=== PATIENT | female | born 1980 | race Caucasian/White ===

== ENCOUNTER 2017-09-23 03:05 | Emergency (ER) | payer OTHER ==
[~2017-09-23] VITALS: Ht 175.3 cm; Wt 111.1 kg
[~2017-09-23 03:05] MED LIST: PRED50TA PO
[2017-09-23 03:18] VITALS: BP 131/85
--- NOTE | 2017-09-23 03:45 | PHYS DOC ---
Past History Past Medical History: Anemia, Other Past Surgical History: No Surgical History Alcohol Use: None Drug Use: None Adult General Chief Complaint Chief Complaint: MUSCLE SPASM/[facility] HPI Patient is a 37-year-old female presents with complaints of muscle cramps and spasms similar to multiple previous episodes. Episode started tonight. Before tonight no recent illness, no fevers, chills, rashes. Patient denies any other symptoms other than the cramping and spasms. Took by mouth medications with no relief. Patient has PCP to follow up with and has physical therapy already scheduled for treatment of his symptoms Review of Systems Review of Systems Constitutional: Denies fever or chills [] HENT: Denies nasal congestion or sore throat [] Respiratory: Denies cough or shortness of breath [] Cardiovascular: No additional information not addressed in HPI [] GI: Denies abdominal pain, nausea, vomiting, bloody stools or diarrhea [] : Denies dysuria or hematuria [] Musculoskeletal: As per history of present illness Integument: Denies rash or skin lesions [] Neurologic: Denies headache, focal weakness or sensory changes [] All other systems were reviewed and found to be within normal limits, except as documented in this note. Allergies Allergies Allergies Coded Allergies Type Severity Reaction Last Updated Verified No Known Drug Allergies 08/23/16 No Physical Exam Physical Exam Constitutional: Well developed, well nourished, no acute distress, non-toxic appearance. [] HENT: Normocephalic, atraumatic, bilateral external ears normal, oropharynx moist, no oral exudates, nose normal. [] Eyes: , EOMI, conjunctiva normal, no discharge. [] Neck: Normal range of motion, trachea midline, no stridor. [] Cardiovascular: Normal perfusion Lungs & Thorax: Bilateral breath sounds clear to auscultation, no tachypnea Abdomen: Bowel sounds normal, soft, no tenderness, no distention Skin: Warm, dry, no erythema, no rash. [] Back: No tenderness, no CVA tenderness. [] Extremities: No tenderness, , ROM intact, no edema. [] Neurologic: Alert and oriented X 3, normal motor function, normal speech, no focal deficits noted. [] Psychologic: Affect normal, judgement normal, mood normal. [] Current Patient Data Vital Signs Vital Signs Date Time Temp Pulse Resp B/P (MAP) Pulse Ox O2 Delivery O2 Flow Rate FiO2 09/23/17 03:18 97.3 82 20 99 Room Air EKG EKG [] Radiology/Procedures Radiology/Procedures [] Course & Med Decision Making Course & Med Decision Making Pertinent Labs and Imaging studies reviewed. (See chart for details) Patient looks well and is nontoxic. Per patient history she's had multiple episodes like this before. That this is not an unusual pattern. She already has follow-up for this condition. Patient looks well and is nontoxic. No significant findings on exam. At the time of this ED evaluation the patient appears healthy and is stable for outpatient follow-up. I do not believe at the time of this evaluation the patient is in need of imaging or lab work or inpatient evaluation. I explained to the patient we'll give her a couple of IM injections, they may take a little bit to work but she can go home in the meantime. Strict return precautions have been discussed, patient agrees to follow-up as directed. [] Dragon Disclaimer Dragon Disclaimer This electronic medical record was generated, in whole or in part, using a voice recognition dictation system. Departure Departure: Impression: Primary Impression: Muscle cramps Additional Impression: Muscle spasm Condition: STABLE Referrals: NAM PANDA DO, [facility] (PCP) Please follow with your doctor for recheck and reevaluation in one to 2 days Patient Instructions: Muscle Cramps Problem Qualifiers Jeannie VOGT MD Sep 23, 2017 03:45
[2017-09-23] MEDS ORDERED: ORPHENADRINE CITRATE 60 MG/2 ML VIAL. IM ONE (04:00)
[2017-09-23] MEDS ORDERED: KETOROLAC 60 MG/2 ML VIAL. IM ONE (04:00)
== END 2017-09-23 04:15 | disposition home or self-care (01) ==
LOC: ER 03:05
DX: M62.838 Other muscle spasm (principal); R25.2 Cramp and spasm; Z86.2 Personal history of diseases of the blood and blood-forming organs and certain disorders involving the immune mechanism
CPT/HCPCS: 96372; 99284; J1885; J2360; 36415; 85014; 85018

== ENCOUNTER 2017-11-22 16:34 | Emergency (ER) | payer OTHER ==
[~2017-11-22] VITALS: Ht 157.5 cm; Wt 118.8 kg
[2017-11-22 17:28] LABS: HEMOGLOBIN ISTAT 10.2 gm/dL; POTASSIUM ISTAT 3.8 mmol/L (3.5-5.0)
--- NOTE | 2017-11-22 17:36 | PHYS DOC ---
Past History Past Medical History: Anemia, Other Past Surgical History: No Surgical History Alcohol Use: None Drug Use: None Adult General Chief Complaint Chief Complaint: DIZZY/LIGHT HEADED HPI HPI Patient is a 37-year-old female brought to the ED by her . She has had some episodes of dizziness for about one week that got worse today. She describes it as feeling like when you've leaned over for a long time and then you straighten up suddenly and you kind of feel lightheaded and almost fainted, this happens to her when she has not been leaning over. The patient does have a history of anemia which has been attributed to iron deficiency, she does have heavy menstrual periods. Her last period was in mid October and it was very heavy. She has had BTL. She has been advised to take iron replacement but has only done so sporadically. Patient also has a history of MS diagnosed almost 20 years ago and is currently having no treatment for that. She sees her neurologist yearly and has a yearly MRI. Her symptoms from that are that her legs are weak and her hands are numb. This has been unchanged. It has been drinking plenty of fluids. She denies vomiting or diarrhea. She has not felt ill otherwise. PCP at [facility] Review of Systems Review of Systems Constitutional: Denies fever or chills [] HENT: Denies nasal congestion or sore throat [] Respiratory: Denies cough or shortness of breath [] Cardiovascular: Denies chest pain GI: Denies abdominal pain, nausea, vomiting, bloody stools or diarrhea [] : Heavy menstrual bleeding as in history of present illness Allergies Allergies Allergies Coded Allergies Type Severity Reaction Last Updated Verified No Known Drug Allergies 08/23/16 No Physical Exam Physical Exam Constitutional: Well developed, well nourished, no acute distress, non-toxic appearance. Alert, mentating normally, heart rate in the 70s. HENT: Normocephalic, atraumatic, bilateral external ears normal, nose normal. [ ] Eyes: conjunctiva normal, no discharge. [] Neck: Normal range of motion, no stridor. [] Cardiovascular:Heart rate regular rhythm, no murmur [] Lungs & Thorax: Bilateral breath sounds clear to auscultation [] Abdomen: Bowel sounds normal, soft, no tenderness, no masses, no pulsatile masses. [] Skin: Warm, dry, no erythema, no rash. [] Extremities: No tenderness, no cyanosis, no clubbing, ROM intact, no edema. [] Neurologic: Alert and oriented X 3, normal motor function, no focal deficits noted. [] Current Patient Data Vital Signs Vital Signs Date Time Temp Pulse Resp B/P (MAP) Pulse Ox O2 Delivery O2 Flow Rate FiO2 11/22/17 17:06 98.2 74 18 100 Room Air Lab Results Laboratory Tests Test 11/22/17 17:16 POC Hemoglobin 10.2 gm/dL POC Hematocrit 30 % POC Sodium 140 mmol/L (135-145) POC Potassium 3.8 mmol/L (3.5-5.0) POC Chloride 106 mmol/L (98-110) POC Total CO2 25 mmol/L (23-32) Anion Gap 15 mmol/L (6-14) H POC Blood Urea Nitrogen 8 mg/dL (8-26) POC Creatinine 0.7 mg/dL (0.5-1.4) Glucose Level 114 mg/dL (60-99) H POC Ionized Calcium ([place]) 1.16 mmol/L (1.13-1.32) EKG EKG [] Radiology/Procedures Radiology/Procedures [] Course & Med Decision Making Course & Med Decision Making Pertinent Labs and Imaging studies reviewed. (See chart for details) I-STAT labs were done. Electrolytes normal. Hemoglobin 10.2, hematocrit 30. I reassured the patient that her symptoms are very likely from anemia which is not severe at this time, discussed the need to get serious about her iron replacement but also I advised her to talk to her primary care doctor about possible treatment for her heavy menstrual periods. The patient is stable for discharge. [] Dragon Disclaimer Dragon Disclaimer This electronic medical record was generated, in whole or in part, using a voice recognition dictation system. Departure Departure: Impression: Primary Impression: Anemia Additional Impression: Paresthesias Disposition: 01 HOME, SELF-CARE Condition: STABLE Referrals: NAM PANDA DO, [facility] (PCP) Additional Instructions: Today, your hemoglobin was 10.2, hematocrit 30. Normal hemoglobin for a lady is about 11-12, so this is mildly anemic. I do encourage you to take iron supplements to see if treating your anemia will help your symptoms. I also encourage you to talk to your doctor about treating your heavy menstrual periods. Continue to drink plenty of fluids. Problem Qualifiers YANY FLORES MD Nov 22, 2017 17:35
[2017-11-22 17:41] VITALS: BP 144/82
== END 2017-11-22 17:40 | disposition home or self-care (01) ==
LOC: ER 16:34
DX: D50.9 Iron deficiency anemia, unspecified (principal); R20.2 Paresthesia of skin
CPT/HCPCS: 36415; 80047; 85014; 85018; 99282

== ENCOUNTER 2018-06-13 08:16 | Emergency (ER) | payer OTHER ==
[~2018-06-13] VITALS: Ht 175.3 cm; Wt 117.3 kg
[2018-06-13] MEDS ORDERED: IV NORMAL SALINE 1,000ML 1,000 ML IV SCH (08:39)
--- NOTE | 2018-06-13 08:44 | EKG ---
[address] [address] Test Date: 2018-06-13 Test Time: 08:27:26 Pat Name: IQRA RODRÍGUEZ Department: Room: Gender: F Derrick Man: : 1980 Requested By: ERIN MARIO Order Number: [id number] Reading MD: John Hernández Measurements Intervals [place] Rate: 78 P: -2 TN: 140 QRS: 42 QRSD: 88 T: 52 QT: 390 QTc: 448 Interpretive Statements SINUS RHYTHM NORMAL ECG Electronically Signed On 06-18-2018 11:45:18 CDT by John Hernández
[2018-06-13] MEDS ORDERED: LORazepam 2 MG/ML VIAL IV ONE (09:00)
--- NOTE | 2018-06-13 09:01 | RAD ---
Exam: AP portable chest History: Trouble breathing and palpitations. Comparison: August 23, 2016. Findings: The heart and mediastinal structures are within normal limits for size. Lungs are without infiltrate. No pleural effusion or pneumothorax is identified. Impression: 1. No acute cardiopulmonary process. Electronically signed by: Lion Jennings MD (06/13/2018 8:57 AM) [facility]
[2018-06-13 09:14] LABS: BASO # 0.1 x10^3/uL (0.0-0.2); BASO % 1 % (0-3); EOS # 0.3 x10^3/uL (0.0-0.7); EOS % 5 % (0-3); HEMATOCRIT 32.9 % (36.0-47.0); HEMOGLOBIN 10.4 g/dL (12.0-15.5); LYMPH # 1.2 x10^3/uL (1.0-4.8); LYMPH % 21 % (24-48); MEAN CORPUSCULAR HEMOGLOBIN 23 pg (25-35); MEAN CORPUSCULAR HGB CONC 32 g/dL (31-37); MEAN CORPUSCULAR VOLUME 72 fL (79-100); MONO # 0.5 x10^3/uL (0.0-1.1); MONO % 8 % (0-9); NEUT # 3.9 x10^3uL (1.8-7.7); NEUT % 65 % (31-73); PLATELET COUNT 299 x10^3/uL (140-400); RED BLOOD COUNT 4.58 x10^6/uL (3.50-5.40)
[2018-06-13 09:26] LABS: ALBUMIN 3.6 g/dL (3.4-5.0); CALCIUM 8.6 mg/dL (8.5-10.1); CREATININE 0.8 mg/dL (0.6-1.0); GFR 79.4; POTASSIUM 4.3 mmol/L (3.5-5.1); TOTAL BILIRUBIN 0.3 mg/dL (0.2-1.0); TOTAL PROTEIN 7.1 g/dL (6.4-8.2)
[2018-06-13] MEDS ORDERED: ALPR0.25 PO (09:54)
--- NOTE | 2018-06-13 09:54 | PHYS DOC ---
Past History Past Medical History: Anemia, Other Past Surgical History: Alcohol Use: None Drug Use: None Adult General Chief Complaint Chief Complaint: RAPID HEART RATE HPI HPI Patient is a 38 year old female who presents with complaining of shortness of breath and palpitation that started this morning as a constant problem with dizziness and lightheadedness and near syncope. Patient denies chest pain and stated she had episodes of the same problem for the last 6 months without seeking medical attention. Patient had history of MS without taking any medication and denies smoking cigarettes and having other medical problem. Patient has positive family history of coronary artery disease. Review of Systems Review of Systems Constitutional: Denies fever or chills [] Eyes: Denies change in visual acuity, redness, or eye pain [] HENT: Denies nasal congestion or sore throat [] Respiratory: Denies cough or shortness of breath [] Cardiovascular: No additional information not addressed in HPI [] GI: Denies abdominal pain, nausea, vomiting, bloody stools or diarrhea [] : Denies dysuria or hematuria [] Musculoskeletal: Denies back pain or joint pain [] Integument: Denies rash or skin lesions [] Neurologic: Denies headache, focal weakness or sensory changes [] Endocrine: Denies polyuria or polydipsia [] All other systems were reviewed and found to be within normal limits, except as documented in this note. Current Medications Current Medications Current Medications Medications (Trade) Dose Ordered Sig/Geovanna Start Time Stop Time Status Last Admin Dose Admin Lorazepam (Ativan) 0.5 mg 1X ONCE 06/13/18 09:00 06/13/18 09:01 DC 06/13/18 09:14 0.5 MG Sodium Chloride 1,000 ml @ 1,000 mls/hr Q1H 06/13/18 08:39 06/13/18 09:38 DC 06/13/18 09:13 1,000 MLS/HR Allergies Allergies Allergies Coded Allergies Type Severity Reaction Last Updated Verified No Known Drug Allergies 08/23/16 No Physical Exam Physical Exam Constitutional: Well developed, well nourished, moderate distress, non-toxic appearance. [] HENT: Normocephalic, atraumatic, oropharynx moist, no oral exudates, nose normal. [] Eyes: PERRLA, EOMI, conjunctiva normal, no discharge. [] Neck: Normal range of motion, no tenderness, supple, no stridor. [] Cardiovascular:Heart rate regular rhythm, no murmur [] Lungs & Thorax: Bilateral breath sounds clear to auscultation [] Abdomen: Bowel sounds normal, soft, no tenderness, no masses, no pulsatile masses. [] Skin: Warm, dry, no erythema, no rash. [] Back: No tenderness, no CVA tenderness. [] Extremities: No tenderness, no cyanosis, no clubbing, ROM intact, no edema. [] Neurologic: Alert and oriented X 3, normal motor function, normal sensory function, no focal deficits noted. [] Psychologic: Affect anxious, judgement normal, mood normal. [] Current Patient Data Vital Signs Vital Signs Date Time Temp Pulse Resp B/P (MAP) Pulse Ox O2 Delivery O2 Flow Rate FiO2 06/13/18 08:17 97.9 79 20 100 Room Air Lab Results Laboratory Tests Test 06/13/18 08:50 White Blood Count 6.0 x10^3/uL (4.0-11.0) Red Blood Count 4.58 x10^6/uL (3.50-5.40) Hemoglobin 10.4 g/dL (12.0-15.5) L Hematocrit 32.9 % (36.0-47.0) L Mean Corpuscular Volume 72 fL (79-100) L Mean Corpuscular Hemoglobin 23 pg (25-35) L Mean Corpuscular Hemoglobin Concent 32 g/dL (31-37) Red Cell Distribution Width 20.0 % (11.5-14.5) H Platelet Count 299 x10^3/uL (140-400) Neutrophils (%) (Auto) 65 % (31-73) Lymphocytes (%) (Auto) 21 % (24-48) L Monocytes (%) (Auto) 8 % (0-9) Eosinophils (%) (Auto) 5 % (0-3) H Basophils (%) (Auto) 1 % (0-3) Neutrophils # (Auto) 3.9 x10^3uL (1.8-7.7) Lymphocytes # (Auto) 1.2 x10^3/uL (1.0-4.8) Monocytes # (Auto) 0.5 x10^3/uL (0.0-1.1) Eosinophils # (Auto) 0.3 x10^3/uL (0.0-0.7) Basophils # (Auto) 0.1 x10^3/uL (0.0-0.2) Platelet Estimate Pending Sodium Level 140 mmol/L (136-145) Potassium Level 4.3 mmol/L (3.5-5.1) Chloride Level 106 mmol/L (98-107) Carbon Dioxide Level 26 mmol/L (21-32) Anion Gap 8 (6-14) Blood Urea Nitrogen 11 mg/dL (7-20) Creatinine 0.8 mg/dL (0.6-1.0) Estimated GFR (Cockcroft-Gault) 79.4 BUN/Creatinine Ratio 14 (6-20) Glucose Level 104 mg/dL (70-99) H Calcium Level 8.6 mg/dL (8.5-10.1) Magnesium Level 2.0 mg/dL (1.8-2.4) Total Bilirubin 0.3 mg/dL (0.2-1.0) Aspartate Amino Transferase (AST) 11 U/L (15-37) L Alanine Aminotransferase (ALT) 24 U/L (14-59) Alkaline Phosphatase 95 U/L (46-116) Troponin I Quantitative < 0.017 ng/mL (0-0.055) Total Protein 7.1 g/dL (6.4-8.2) Albumin 3.6 g/dL (3.4-5.0) Albumin/Globulin Ratio 1.0 (1.0-1.7) EKG EKG EKG interpreted by me. EKG at 0 827 showed normal sinus rhythm at rate of 78, no acute ST and T-wave abnormalities. Radiology/Procedures Radiology/[place] [address] IMAGING REPORT Signed PATIENT: IQRA RODRÍGUEZ ACCOUNT: [id number] : 1980 LOCATION: ER AGE: 38 SEX: F EXAM STATUS: REG ER ORD. PHYSICIAN: ERIN MARIO MD REASON: shortness of breath and palpitation PROCEDURE: PORTABLE CHEST 1V Exam: AP portable chest History: Trouble breathing and palpitations. Comparison: August 23, 2016. Findings: The heart and mediastinal structures are within normal limits for size. Lungs are without infiltrate. No pleural effusion or pneumothorax is identified. Impression: 1. No acute cardiopulmonary process. Electronically signed by: Lion Castro MD (06/13/2018 8:57 AM) [place] [id number] DICTATED AND SIGNED BY: LION CASTRO MD DATE: 06/13/18 0857 CC: ERIN MARIO MD; NAM PANDA DO, MPH ~ Course & Med Decision Making Course & Med Decision Making Pertinent Labs and Imaging studies reviewed. (See chart for details) Evaluation of patient in ER showed 38-year-old female patient with complaining of palpitation and dizziness and near-syncope. Patient was very anxious in ER with unremarkable EKG and labs. Patient treated with IV fluid and Ativan and felt better. Patient denies suicidal and homicidal ideation. Plan to discharge patient home with diagnosis of panic attack. Dragon Disclaimer Dragon Disclaimer This electronic medical record was generated, in whole or in part, using a voice recognition dictation system. Departure Departure: Impression: Primary Impression: Panic attack Additional Impression: Chronic anemia Disposition: HOME, SELF-CARE (at 0952) Condition: IMPROVED Referrals: NAM PANDA DO, [facility] (PCP) Patient Instructions: Anxiety and Panic Attacks, Iron Deficiency Anemia Additional Instructions: Drink plenty of liquids Follow-up with your primary care physician in 3-5 days Return to ER if not getting better Scripts Alprazolam (XANAX) 0.25 Mg Tablet 0.25 MG PO PRN Q6HRS PRN for ANXIETY / AGITATION, #20 TAB 0 Refills Prov: ERIN AMRIO MD 06/13/18 Problem Qualifiers ERIN MARIO MD Jun 13, 2018 09:54
[2018-06-13 09:58] LABS: PLT ESTIMATE ADEQUATE (ADEQUATE)
[2018-06-13 09:59] LABS: ANISOCYTOSIS MOD; HYPOCHROMIA MOD; MICROCYTOSIS MOD; OVALOCYTES OCC; POLYCHROMASIA SLIGHT
[2018-06-13 10:05] VITALS: BP 137/80
== END 2018-06-13 10:10 | disposition home or self-care (01) ==
LOC: ER 08:16
DX: F41.0 Panic disorder [episodic paroxysmal anxiety] (principal); D64.89 Other specified anemias; R55 Syncope and collapse
CPT/HCPCS: 36415; 71045; 80053; 83735; 84443; 84484; 85025; 93005; 96361; 96374; 99285; J2060; J7030

== ENCOUNTER 2018-08-27 10:59 | Emergency (ER) | payer OTHER ==
[~2018-08-27] VITALS: Ht 175.3 cm; Wt 107.5 kg
[~2018-08-27 10:59] MED LIST changes: +ALPR0.25 PO
--- NOTE | 2018-08-27 11:32 | EKG ---
[address] [address] Test Date: 2018-08-27 Test Time: 11:30:01 Pat Name: IQRA RODRÍGUEZ Department: Room: Gender: F Flat[place] Ironer: : 1980 Requested By: KB CORREA Order Number: [id number] Reading MD: Measurements Intervals [place] Rate: 61 P: 34 TN: 158 QRS: 26 QRSD: 90 T: 26 QT: 402 QTc: 406 Interpretive Statements SINUS RHYTHM NO SPECIFIC ECG ABNORMALITIES RI6.01 Unconfirmed report Compared to ECG 06/13/2018 08:27:26 No significant changes
--- NOTE | 2018-08-27 12:01 | ED.ADGEN ---
Past History Past Medical History: Anemia, Other Past Surgical History: Alcohol Use: None Drug Use: None Adult General Chief Complaint Chief Complaint Near syncope [facility] HPI Patient is a 38-year-old female with history of multiple sclerosis, sleep apnea presents with near-syncopal episode this morning. Patient states first episode occurred this morning while sitting in watching phone she was watching intently and then a sudden brief LOC, but not to the point where she slumped over but did not fall. Episode lasted 1-2 seconds. Patient reports second episode of feeling dizzy and [place]headed [place]. Patient denies loss of consciousness but felt so in episode may have occurred. She reports feeling anxious with racing heart during that episode. Patient states she's been previously evaluated for the same in this emergency department. She does have neurologist and had a recent MRI the past month or evaluation of left-sided numbness which has been constant for the past area she states the MRI was normal. Denies chest pain, history of arrhythmia. Reports chronic anemia but sensation. Last menstrual period was 2 weeks ago. Patient does not use stimulants. Take medications T basis.[] Review of Systems Review of Systems ROS as per HPI All other systems were reviewed and found to be within normal limits, except as documented in this note. Allergies Allergies Allergies Coded Allergies Type Severity Reaction Last Updated Verified No Known Drug Allergies 08/23/16 No Physical Exam Physical Exam Constitutional: Well developed, well nourished, no acute distress, non-toxic appearance. [] HENT: Normocephalic, atraumatic, bilateral external ears normal, oropharynx moist, no oral exudates, nose normal. [] Eyes: PERRLA, EOMI, conjunctiva normal, no discharge. [] Neck: Normal range of motion, no tenderness, supple, no stridor. [] Cardiovascular:Heart rate regular rhythm, no murmur [] Lungs & Thorax: Bilateral breath sounds clear to auscultation [] Abdomen: Bowel sounds normal, soft, no tenderness. [] Skin: Warm, dry, no erythema, no rash. [] Back: No tenderness, no CVA tenderness. [] Extremities: No tenderness, no cyanosis, no clubbing, ROM intact, no edema. [] Neurologic: Alert and oriented X 3, normal motor function, normal sensory function, no focal deficits noted. [] Psychologic: Affect normal, judgement normal, mood normal. [] Current Patient Data Vital Signs Vital Signs Date Time Temp Pulse Resp B/P (MAP) Pulse Ox O2 Delivery O2 Flow Rate FiO2 08/27/18 12:35 72 16 126/90 (102) 99 Room Air 08/27/18 11:05 98.2 Lab Results Laboratory Tests Test 08/27/18 11:37 08/27/18 11:38 Glucose (Fingerstick) 85 mg/dL (70-99) White Blood Count 4.7 x10^3/uL (4.0-11.0) Red Blood Count 4.69 x10^6/uL (3.50-5.40) Hemoglobin 12.5 g/dL (12.0-15.5) Hematocrit 38.2 % (36.0-47.0) Mean Corpuscular Volume 82 fL (79-100) Mean Corpuscular Hemoglobin 27 pg (25-35) Mean Corpuscular Hemoglobin Concent 33 g/dL (31-37) Red Cell Distribution Width 18.3 % (11.5-14.5) H Platelet Count 211 x10^3/uL (140-400) Neutrophils (%) (Auto) 53 % (31-73) Lymphocytes (%) (Auto) 28 % (24-48) Monocytes (%) (Auto) 11 % (0-9) H Eosinophils (%) (Auto) 6 % (0-3) H Basophils (%) (Auto) 1 % (0-3) Neutrophils # (Auto) 2.5 x10^3uL (1.8-7.7) Lymphocytes # (Auto) 1.3 x10^3/uL (1.0-4.8) Monocytes # (Auto) 0.5 x10^3/uL (0.0-1.1) Eosinophils # (Auto) 0.3 x10^3/uL (0.0-0.7) Basophils # (Auto) 0.1 x10^3/uL (0.0-0.2) Platelet Estimate Adequate (ADEQUATE) Large Platelets Occ Polychromasia Slight Anisocytosis Slight Microcytosis Slight Ovalocytes Occ Sodium Level 140 mmol/L (136-145) Potassium Level 4.0 mmol/L (3.5-5.1) Chloride Level 105 mmol/L (98-107) Carbon Dioxide Level 25 mmol/L (21-32) Anion Gap 10 (6-14) Blood Urea Nitrogen 11 mg/dL (7-20) Creatinine 0.8 mg/dL (0.6-1.0) Estimated GFR (Cockcroft-Gault) 79.4 BUN/Creatinine Ratio 14 (6-20) Glucose Level 94 mg/dL (70-99) Calcium Level 9.1 mg/dL (8.5-10.1) Total Bilirubin 0.3 mg/dL (0.2-1.0) Aspartate Amino Transferase (AST) 8 U/L (15-37) L Alanine Aminotransferase (ALT) 22 U/L (14-59) Alkaline Phosphatase 72 U/L (46-116) Total Protein 7.3 g/dL (6.4-8.2) Albumin 3.8 g/dL (3.4-5.0) Albumin/Globulin Ratio 1.1 (1.0-1.7) EKG EKG [EKG: NSR, reviewed] Radiology/Procedures Radiology/Procedures [] Course & Med Decision Making Course & Med Decision Making Pertinent Labs and Imaging studies reviewed. (See chart for details) [No seizure-like activity reported. Denies palpitations or arrhythmia during the first episode. Palpitations injuring the second episode which patient attributes to anxiety patient denies LOC during the second episode. His asymptomatic with normal neurologic exam on ED arrival. Patient will be observed on monitor, basic labs and EKG will be obtained. If no diagnosis was made, patient will be instructed follow-up with PCP and/or neurologist.. ] Final Impression Final Impression [1. Near syncope 2. Palpitations] Dragon Disclaimer Dragon Disclaimer This electronic medical record was generated, in whole or in part, using a voice recognition dictation system. KB CORREA DO Aug 27, 2018 12:01
[2018-08-27 12:17] LABS: BASO # 0.1 x10^3/uL (0.0-0.2); BASO % 1 % (0-3); EOS # 0.3 x10^3/uL (0.0-0.7); EOS % 6 % (0-3); HEMATOCRIT 38.2 % (36.0-47.0); HEMOGLOBIN 12.5 g/dL (12.0-15.5); LYMPH # 1.3 x10^3/uL (1.0-4.8); LYMPH % 28 % (24-48); MEAN CORPUSCULAR HEMOGLOBIN 27 pg (25-35); MEAN CORPUSCULAR HGB CONC 33 g/dL (31-37); MEAN CORPUSCULAR VOLUME 82 fL (79-100); MONO # 0.5 x10^3/uL (0.0-1.1); MONO % 11 % (0-9); NEUT # 2.5 x10^3uL (1.8-7.7); NEUT % 53 % (31-73); PLATELET COUNT 211 x10^3/uL (140-400); RED BLOOD COUNT 4.69 x10^6/uL (3.50-5.40); RED CELL DISTRIBUTION WIDTH 18.3 % (11.5-14.5); WHITE BLOOD COUNT 4.7 x10^3/uL (4.0-11.0)
[2018-08-27 12:35] VITALS: BP 126/90
[2018-08-27 12:35] LABS: ALBUMIN 3.8 g/dL (3.4-5.0); ALBUMIN/GLOBULIN RATIO 1.1 (1.0-1.7); CALCIUM 9.1 mg/dL (8.5-10.1); CREATININE 0.8 mg/dL (0.6-1.0); GFR 79.4; TOTAL BILIRUBIN 0.3 mg/dL (0.2-1.0); TOTAL PROTEIN 7.3 g/dL (6.4-8.2)
[2018-08-27 13:00] LABS: ANISOCYTOSIS SLIGHT; MICROCYTOSIS SLIGHT; OVALOCYTES OCC; PLT ESTIMATE ADEQUATE (ADEQUATE); POLYCHROMASIA SLIGHT
== END 2018-08-27 12:38 | disposition home or self-care (01) ==
LOC: ER 10:59
DX: R55 Syncope and collapse (principal); R00.2 Palpitations; Z86.2 Personal history of diseases of the blood and blood-forming organs and certain disorders involving the immune mechanism
CPT/HCPCS: 36415; 80053; 82947; 85025; 93005; 99284

== ENCOUNTER 2018-12-27 15:42 | Emergency (ER) | payer OTHER ==
[~2018-12-27] VITALS: Ht 175.3 cm; Wt 117.3 kg
[2018-12-27 15:55] VITALS: BP 139/85
--- NOTE | 2018-12-27 16:29 | PHYS DOC ---
Past History Past Medical History: Anemia, Anxiety, Other Past Surgical History: , Tubal ligation Alcohol Use: None Drug Use: None Adult General Chief Complaint Chief Complaint: DIZZY/LIGHT HEADED HPI HPI Patient is a 38-year-old female who presents with dizziness and abnormal sensation, "like everything resets" that has been present intermittently for over the past year. Today's symptoms didn't resolve as fast as usual and so she presented to the emergency department. This happened approximately an hour ago. Symptoms have now come back to normal. Patient denies any chest pains, palpitations, or headache. Patient's workup during this past year has included MRI in July 2018 that did not show anything acute going on. She had a Holter monitor approximately 2 weeks ago that did not show any cardiac dysrhythmias during these episodes. They usually resolve with Ativan, lasting less than 5-10 minutes. There has been no new weakness in her arms or legs today. Patient's past medical history is significant for MS.[] Review of Systems Review of Systems Constitutional: Denies fever or chills [] Eyes: Denies change in visual acuity, redness, or eye pain [] HENT: Denies nasal congestion or sore throat [] Respiratory: Denies cough or shortness of breath [] Cardiovascular: No chest pain or palpitations[] GI: Denies abdominal pain, nausea, vomiting, bloody stools or diarrhea [] : Denies dysuria or hematuria [] Musculoskeletal: Denies back pain or joint pain [] Integument: Denies rash or skin lesions [] Neurologic: See history of present illness[] Endocrine: Denies polyuria or polydipsia [] All other systems were reviewed and found to be within normal limits, except as documented in this note. Allergies Allergies Allergies Coded Allergies Type Severity Reaction Last Updated Verified No Known Drug Allergies 08/23/16 No Physical Exam Physical Exam Constitutional: Well developed, well nourished, no acute distress, non-toxic appearance. [] HENT: Normocephalic, atraumatic, bilateral external ears normal, oropharynx moist, no oral exudates, nose normal. [] Eyes: PERRLA, EOMI, conjunctiva normal, no discharge. [] Neck: Normal range of motion, no tenderness, supple, no stridor. [] Cardiovascular:Heart rate regular rhythm, no murmur [] Lungs & Thorax: Bilateral breath sounds clear to auscultation [] Abdomen: Not examined. [] Skin: Warm, dry, no erythema, no rash. [] Back: No tenderness, no CVA tenderness. [] Extremities: No tenderness, no cyanosis, no clubbing, ROM intact, no edema. [] Neurologic: Alert and oriented X 3, normal motor function, normal sensory function, no focal deficits noted. [] Psychologic: Affect depressed, judgement normal, mood depressed and tearful. [] Current Patient Data Vital Signs Vital Signs Date Time Temp Pulse Resp B/P (MAP) Pulse Ox O2 Delivery O2 Flow Rate FiO2 12/27/18 15:55 98.1 74 18 98 Room Air EKG EKG [] Radiology/Procedures Radiology/Procedures [] Course & Med Decision Making Course & Med Decision Making Pertinent Labs and Imaging studies reviewed. (See chart for details) ED course and medical decision making: After completing the history and physical exam and discussing possible evaluation and treatment options with patient, she became tearful, and accused me of being a "terrible doctor" that I "should perform lab tests." I told her I was willing to perform lab tests, but that an MRI was not capable of being performed here at [facility] since we had no MRI capability. Additional testing to include EKG as well as urinalysis were also offered. She changed from the hospital gown to her clothes during this discussion and walked out of the emergency department without signing an AGAINST MEDICAL ADVICE form[] Dragon Disclaimer Dragon Disclaimer This electronic medical record was generated, in whole or in part, using a voice recognition dictation system. Departure Departure: Impression: Primary Impression: Dizziness Disposition: 07 AGAINST MEDICAL ADVICE Condition: IMPROVED Referrals: NAM PANDA DO, [facility] (PCP) Follow-up in 2 days KENIA BOSS DO Dec 27, 2018 16:29
== END 2018-12-27 16:20 | disposition left against medical advice (07) ==
LOC: ER 15:42
DX: R42 Dizziness and giddiness (principal); F41.9 Anxiety disorder, unspecified; Z86.2 Personal history of diseases of the blood and blood-forming organs and certain disorders involving the immune mechanism
CPT/HCPCS: 99281

== ENCOUNTER 2019-04-09 01:36 | Emergency (ER) | payer OTHER ==
[~2019-04-09] VITALS: Ht 175.3 cm; Wt 117.3 kg
--- NOTE | 2019-04-09 01:53 | ED.ADGEN ---
Past History Past Medical History: Anemia, Anxiety, Arrhythmia, UTI, Other Past Medical History Hx MS Past Surgical History: , Tubal ligation Alcohol Use: None Drug Use: None Adult General Chief Complaint Chief Complaint ".. I woke up.. not feeling right .. I been having some problems.. with dizzy episodes.. and Lt facial fullness... nausea episodes.. I have MS.. and it been real intermittent... I am to follow-up with an ENT specialist.. my neurology Miguel ..no longer see's pt... and I ve going to have a follow up with another neurologist..."..." but I took my BP and it was 161/90.. so I got worried.. I took it again and it had not gone down.. so I call my dad to take me in to get checked out..." HPI HPI Patient is a 39 year old female dependent who presents with above hx and complaints of nausea, dizziness, dis equilibrium, accelerated hypertension and malaise. Has had recent episodes of dizziness and some left facial fullness. On arrival pt. BP in normal range. Pt. does have hx of MS x 21 yrs. Patient has not been on steroids for some time for her MS. Patient reportedly has intermittent episodes of exacerbation of her MS. Is not on any immunosuppressants for her MS. Does get MRIs approximately every 6 months. Last MRI head no acute changes approximately 6 months ago. Pt. dx of MS when te enager 21 yrs ago by spinal and MRI lesions. Pt has had periodic exacerbation vision, Lt arm and leg weakness. Has somewhat persistent mild Lt leg weakness. Heat exacerbates her symptom significantly. Patient has past history of sleep apnea, anxiety, dysrhythmias. Patient has previously worn a Holter monitor for evaluation of dysrhythmias. No specific dysrhythmias noted during the two-week time of observation. No recent travel. No specific ill contacts. No history of recent trauma. Patient does not normally have hypertension. Patient normally follows at [place]. No History of bad food intake. No complaints of fever or chills. No specific ill contacts or recent travel. Review of Systems Review of Systems Constitutional: Denies fever or chills [] Eyes: Denies change in visual acuity, redness, or eye pain [] HENT: Denies nasal congestion or sore throat . Has recent []left facial fullness and decreased hearing left ear Respiratory: Denies cough or shortness of breath [] Cardiovascular: No additional information not addressed in HPI [] GI: Denies abdominal pain, , vomiting, bloody stools or diarrhea []complaints of nausea. Complaints of right flank pain : Denies dysuria or hematuria [] Musculoskeletal: Denies back pain or joint pain [] Integument: Denies rash or skin lesions [] Neurologic: Denies headache, focal weakness or sensory changes [. The patient]has complaints of recent dizziness Endocrine: Denies polyuria or polydipsia [] All other systems were reviewed and found to be within normal limits, except as documented in this note. Family History Family History Noncontributory Current Medications Current Medications Current Medications Medications (Trade) Dose Ordered Sig/Geovanna Start Time Stop Time Status Last Admin Dose Admin Ceftriaxone Sodium 1 gm/ Sodium Chloride 50 ml @ 100 mls/hr 1X ONCE 04/09/19 03:30 04/09/19 03:59 DC 04/09/19 03:40 100 MLS/HR Ceftriaxone Sodium (Rocephin) 1 gm STK-MED ONCE 04/09/19 03:34 04/09/19 03:35 DC Lactated Ringer's 1,000 ml @ 1,000 mls/hr Q1H 04/09/19 02:00 04/09/19 02:59 DC 04/09/19 02:29 1,000 MLS/HR Magnesium Hydroxide (Milk Of Magnesia) 2,400 mg 1X ONCE 04/09/19 03:30 04/09/19 03:44 DC 04/09/19 03:40 2,400 MG Sodium Chloride 50 ml @ As Directed STK-MED ONCE 04/09/19 03:35 04/09/19 03:36 DC Allergies Allergies Allergies Coded Allergies Type Severity Reaction Last Updated Verified No Known Drug Allergies 08/23/16 No Physical Exam Physical Exam Constitutional: Moderate acute distress, non-toxic appearance. [] HENT: Normocephalic, atraumatic, bilateral external ears normal, oropharynx moist, no oral exudates, nose normal. []TMs intact Eyes: PERRLA, EOMI, conjunctiva normal, no discharge. Mild turbinate injection. Mild septal deviation. Glasses. Myopia Neck: Normal range of motion, no tenderness, supple, no stridor. [] Cardiovascular:Heart rate regular rhythm, no murmur [] Lungs & Thorax: Bilateral breath sounds equal apex and posterior on auscult ation [] Abdomen: Bowel sounds normal, soft, no tenderness, no masses, no pulsatile masses. Distended .[]Old surgery scars Skin: Warm, dry, no erythema, no rash. [] Back: No tenderness, no CVA tenderness. [] Extremities: No tenderness, no cyanosis, no clubbing, ROM intact, no edema. [] Neurologic: Alert and oriented X 3, no significant motor or sensory function changes from her baseline, no focal deficits noted. []DTRs +2 patella and brachial. Lt. patellar reflex slightly more reactive than Rt. Has Distal vibratory with 128. . Does have lateralization on bone conduction to right ear [id number]. AC> BC. Psychologic: Affect very anxious, judgement normal, mood normal. [] Current Patient Data Vital Signs Vital Signs Date Time Temp Pulse Resp B/P (MAP) Pulse Ox O2 Delivery O2 Flow Rate FiO2 04/09/19 03:44 67 18 122/81 (95) 100 Room Air 04/09/19 01:52 98.5 Lab Results Laboratory Tests Test 04/09/19 01:40 04/09/19 02:00 04/09/19 02:19 Urine Collection Type Unknown Urine Color Yellow Urine Clarity Hazy Urine pH 5.5 Urine Specific [place] 1.015 Urine Protein Neg (NEG-TRACE) Urine Glucose (UA) Neg mg/dL (NEG) Urine Ketones (Stick) Neg mg/dL (NEG) Urine Blood Small (NEG) Urine Nitrite Pos (NEG) Urine Bilirubin Neg (NEG) Urine Urobilinogen Dipstick 0.2 mg/dL (0.2 mg/dL) Urine Leukocyte Esterase Mod (NEG) Urine RBC Occ /HPF (0-2) Urine WBC 5-10 /HPF (0-4) Urine Squamous Epithelial Cells Occ /LPF Urine Bacteria Many /HPF (0-FEW) Urine Opiates Screen Neg (NEG) Urine Methadone Screen Neg (NEG) Urine Barbiturates Neg (NEG) Urine Phencyclidine Screen Neg (NEG) Urine Amphetamine/Methamphetamine Neg (NEG) Urine Benzodiazepines Screen Neg (NEG) Urine Cocaine Screen Neg (NEG) Urine Cannabinoids Screen Neg (NEG) Urine Ethyl Alcohol Neg (NEG) White Blood Count 7.2 x10^3/uL (4.0-11.0) Red Blood Count 4.01 x10^6/uL (3.50-5.40) Hemoglobin 10.0 g/dL (12.0-15.5) L Hematocrit 31.5 % (36.0-47.0) L Mean Corpuscular Volume 78 fL (79-100) L Mean Corpuscular Hemoglobin 25 pg (25-35) Mean Corpuscular Hemoglobin Concent 32 g/dL (31-37) Red Cell Distribution Width 16.2 % (11.5-14.5) H Platelet Count 300 x10^3/uL (140-400) Neutrophils (%) (Auto) 61 % (31-73) Lymphocytes (%) (Auto) 25 % (24-48) Monocytes (%) (Auto) 10 % (0-9) H Eosinophils (%) (Auto) 3 % (0-3) Basophils (%) (Auto) 1 % (0-3) Neutrophils # (Auto) 4.4 x10^3uL (1.8-7.7) Lymphocytes # (Auto) 1.8 x10^3/uL (1.0-4.8) Monocytes # (Auto) 0.8 x10^3/uL (0.0-1.1) Eosinophils # (Auto) 0.2 x10^3/uL (0.0-0.7) Basophils # (Auto) 0.1 x10^3/uL (0.0-0.2) Erythrocyte Sedimentation Rate 30 (0-25) H Prothrombin Time 9.6 SEC (9.4-11.4) Prothrombin Time INR 0.9 (0.9-1.1) PTT 26 SEC (23-33) D-Dimer (Lu) 0.33 mg/L (0.00-0.50) Sodium Level 142 mmol/L (136-145) Potassium Level 3.9 mmol/L (3.5-5.1) Chloride Level 105 mmol/L (98-107) Carbon Dioxide Level 25 mmol/L (21-32) Anion Gap 12 (6-14) Blood Urea Nitrogen 13 mg/dL (7-20) Creatinine 0.8 mg/dL (0.6-1.0) Estimated GFR (Cockcroft-Gault) 79.0 Glucose Level 98 mg/dL (70-99) Calcium Level 8.9 mg/dL (8.5-10.1) Magnesium Level 2.1 mg/dL (1.8-2.4) Total Bilirubin 0.2 mg/dL (0.2-1.0) Direct Bilirubin 0.1 mg/dL (0.0-0.2) Aspartate Amino Transferase (AST) 8 U/L (15-37) L Alanine Aminotransferase (ALT) 16 U/L (14-59) Alkaline Phosphatase 92 U/L (46-116) Creatine Kinase 43 U/L (26-192) Troponin I Quantitative < 0.017 ng/mL (0-0.055) Total Protein 7.3 g/dL (6.4-8.2) Albumin 3.6 g/dL (3.4-5.0) Amylase Level 49 U/L (25-115) Lipase 148 U/L (73-393) POC Urine HCG, Qualitative hcg negative (Negative) EKG EKG My interpretation EKG shows a sinus rhythm at 66 bpm[] no acute morphology noted. Radiology/Procedures Radiology/Procedures My interpretation of acute abdomen and chest films show no acute cardiopulmonary findings. Diaphragm borders are smooth and no infiltrate. Abdomen shows increased stool throughout colon. Nonobstructive bowel gas pattern but findings are somewhat consistent with constipation.[] There was old surgical clips. Does have some spinal spurring [place] [address] IMAGING REPORT Signed PATIENT: IQRA ACEVEDO ACCOUNT: [id number] : 1980 LOCATION: ER AGE: 39 SEX: F EXAM STATUS: REG ER ORD. PHYSICIAN: TORI DING MD REASON: Lt facial fullness, dizziness, hx ms PROCEDURE: CT HEAD AND MAXILLOFACIAL WO PQRS Compliance Statement: One or more of the following individualized dose reduction techniques were utilized for this examination: 1. Automated exposure control 2. Adjustment of the mA and/or kV according to patient size 3. Use of iterative reconstruction technique CT HEAD AND MAXILLOFACIAL WITHOUT CONTRAST History: Left facial fullness, dizziness. History of MS. Comparison: None. Procedure: Axial images are obtained of the head from the skull base through the vertex without IV contrast. Helical CT imaging of the facial bones is performed without IV contrast. Findings: The ventricles and sulci are normal for the patient's age. There is a 1.3 cm hypodensity in the left pericallosal white matter. More subtle small hypodensity is also seen right pericallosal. These hypodensities may be sequela of demyelination. No mass-effect, midline shift, hemorrhage or obvious acute infarction is identified. Basilar cisterns are patent. Bone windows demonstrate no significant calvarial abnormality. No acute facial bone fracture. Mucosal thickening of the bilateral ethmoid sinuses, worse on the right. Minimal mucosal thickening inferiorly in the bilateral maxillary sinuses. Other paranasal sinuses are clear. There is no air-fluid level. The ostiomeatal complexes are patent. There is rightward deviation of the bony nasal septum. Mastoid air cells are well aerated. The parotid and submandibular glands are symmetric. There are subcentimeter upper cervical lymph nodes. Upper cervical spine alignment is maintained. IMPRESSION: 1. Small hypodensities of the pericallosal white matter are nonspecific but may be sequela of demyelination. Nonemergent MR brain with and without contrast may be useful. 2. No CT explanation for patient's left facial fullness. Electronically signed by: Magdalena Fang MD (04/09/2019 3:30 AM) [facility] DICTATED AND SIGNED BY: MAGDALENA FANG MD DATE: 04/09/19 0330 CC: TORI DING MD; NAM PANDA DO, MPH ~ Course & Med Decision Making Course & Med Decision Making Pertinent Labs and Imaging studies reviewed. (See chart for details) Suspect mild exacerbation of MS. Urinary tract infection. Has bilateral thickening of mucosa maxillary and ethmoid. Start on Flonase. We will treat UTI with Keflex 500x3 times a day. Patient follow-up primary care. Patient follow- up primary and cultures. Patient return if any concerns. Pt. comfortable with current tx. plan. Pt to take her BP monitor in to compare to office readings. [] Final Impression Final Impression 1. Nausea 2. History of dizziness and disequilibrium[] 3. History of decreased hearing left ear 4. History of MS x 21 yrs ( Suspect mild exacerbation) 5. History of anxiety 6. Constipation 7. UTI 8. Anemia Hgb 10.0 9. Mild elevation Sed. Rate 30 10.Mild Maxillary and ethmoid Mucosal Thickening Dragon Disclaimer Dragon Disclaimer This electronic medical record was generated, in whole or in part, using a voice recognition dictation system. Discharge Summary Visit Information Final Diagnosis Problems Medical Problems: (1) Multiple sclerosis Status: Acute (2) Multiple sclerosis exacerbation Status: Acute (3) Urinary tract bacterial infections Status: Acute Brief Hospital Course Allergies Allergies Coded Allergies Type Severity Reaction Last Updated Verified No Known Drug Allergies 08/23/16 No Vital Signs Vital Signs Date Time Temp Pulse Resp B/P (MAP) Pulse Ox O2 Delivery O2 Flow Rate FiO2 04/09/19 03:44 67 18 122/81 (95) 100 Room Air 04/09/19 01:52 98.5 Lab Results Laboratory Tests Test 04/09/19 01:40 04/09/19 02:00 04/09/19 02:19 Urine Collection Type Unknown Urine Color Yellow Urine Clarity Hazy Urine pH 5.5 Urine Specific [place] 1.015 Urine Protein Neg (NEG-TRACE) Urine Glucose (UA) Neg mg/dL (NEG) Urine Ketones (Stick) Neg mg/dL (NEG) Urine Blood Small (NEG) Urine Nitrite Pos (NEG) Urine Bilirubin Neg (NEG) Urine Urobilinogen Dipstick 0.2 mg/dL (0.2 mg/dL) Urine Leukocyte Esterase Mod (NEG) Urine RBC Occ /HPF (0-2) Urine WBC 5-10 /HPF (0-4) Urine Squamous Epithelial Cells Occ /LPF Urine Bacteria Many /HPF (0-FEW) Urine Opiates Screen Neg (NEG) Urine Methadone Screen Neg (NEG) Urine Barbiturates Neg (NEG) Urine Phencyclidine Screen Neg (NEG) Urine Amphetamine/Methamphetamine Neg (NEG) Urine Benzodiazepines Screen Neg (NEG) Urine Cocaine Screen Neg (NEG) Urine Cannabinoids Screen Neg (NEG) Urine Ethyl Alcohol Neg (NEG) White Blood Count 7.2 x10^3/uL (4.0-11.0) Red Blood Count 4.01 x10^6/uL (3.50-5.40) Hemoglobin 10.0 g/dL (12.0-15.5) Hematocrit 31.5 % (36.0-47.0) Mean Corpuscular Volume 78 fL (79-100) Mean Corpuscular Hemoglobin 25 pg (25-35) Mean Corpuscular Hemoglobin Concent 32 g/dL (31-37) Red Cell Distribution Width 16.2 % (11.5-14.5) Platelet Count 300 x10^3/uL (140-400) Neutrophils (%) (Auto) 61 % (31-73) Lymphocytes (%) (Auto) 25 % (24-48) Monocytes (%) (Auto) 10 % (0-9) Eosinophils (%) (Auto) 3 % (0-3) Basophils (%) (Auto) 1 % (0-3) Neutrophils # (Auto) 4.4 x10^3uL (1.8-7.7) Lymphocytes # (Auto) 1.8 x10^3/uL (1.0-4.8) Monocytes # (Auto) 0.8 x10^3/uL (0.0-1.1) Eosinophils # (Auto) 0.2 x10^3/uL (0.0-0.7) Basophils # (Auto) 0.1 x10^3/uL (0.0-0.2) Erythrocyte Sedimentation Rate 30 (0-25) Prothrombin Time 9.6 SEC (9.4-11.4) Prothromb Time International Ratio 0.9 (0.9-1.1) Activated Partial Thromboplast Time 26 SEC (23-33) D-Dimer (Lu) 0.33 mg/L (0.00-0.50) Sodium Level 142 mmol/L (136-145) Potassium Level 3.9 mmol/L (3.5-5.1) Chloride Level 105 mmol/L (98-107) Carbon Dioxide Level 25 mmol/L (21-32) Anion Gap 12 (6-14) Blood Urea Nitrogen 13 mg/dL (7-20) Creatinine 0.8 mg/dL (0.6-1.0) Estimated GFR (Cockcroft-Gault) 79.0 Glucose Level 98 mg/dL (70-99) Calcium Level 8.9 mg/dL (8.5-10.1) Magnesium Level 2.1 mg/dL (1.8-2.4) Total Bilirubin 0.2 mg/dL (0.2-1.0) Direct Bilirubin 0.1 mg/dL (0.0-0.2) Aspartate Amino Transf (AST/SGOT) 8 U/L (15-37) Alanine Aminotransferase (ALT/SGPT) 16 U/L (14-59) Alkaline Phosphatase 92 U/L (46-116) Creatine Kinase 43 U/L (26-192) Troponin I Quantitative < 0.017 ng/mL (0-0.055) Total Protein 7.3 g/dL (6.4-8.2) Albumin 3.6 g/dL (3.4-5.0) Amylase Level 49 U/L (25-115) Lipase 148 U/L (73-393) Bedside Urine HCG, Qualitative hcg negative (Negative) Brief Hospital Course Ms. Acevedo is a 39 old female who presented with nausea,subjective left facial fullness and malaise. Suspect possible mild MS exacerbation. Discharge Information Condition at Discharge: Stable Disposition/Orders: D/C to Home Dischare Medications Current Medications Lactated Ringer's 1,000 ml @ 1,000 mls/hr Q1H IV Last administered on 04/09/19at 02:29; Admin Dose 1,000 MLS/HR; Start 04/09/19 at 02:00; Stop 04/09/19 at 02:59; Status DC Ceftriaxone Sodium 1 gm/ Sodium Chloride 50 ml @ 100 mls/hr 1X ONCE IV Last administered on 04/09/19at 03:40; Admin Dose 100 MLS/HR; Start 04/09/19 at 03:30; Stop 04/09/19 at 03:59; Status DC Magnesium Hydroxide (Milk Of Magnesia) 2,400 mg 1X ONCE PO Last administered on 04/09/19at 03:40; Admin Dose 2,400 MG; Start 04/09/19 at 03:30; Stop 04/09/19 at 03:44; Status DC Ceftriaxone Sodium (Rocephin) 1 gm STK-MED ONCE .ROUTE ; Start 04/09/19 at 03:34; Stop 04/09/19 at 03:35; Status DC Sodium Chloride 50 ml @ As Directed STK-MED ONCE .ROUTE ; Start 04/09/19 at 03:35; Stop 04/09/19 at 03:36; Status DC Active Scripts Active [place] (Sodium Chloride) 104 Ml [place] 104 Ml NS QID 90 Days Flonase Allergy Relief (Fluticasone Propionate) 9.9 Ml [place].susp 2 Sprays NS BID 30 Days Keflex (Cephalexin) 500 Mg Capsule 500 Mg PO TID 10 Days Xanax (Alprazolam) 0.25 Mg Tablet 0.25 Mg PO PRN Q6HRS PRN Prednisone 50 Mg Tablet 50 Mg PO DAILY 5 Days Dragon Disclaimer This chart was dictated in whole or in part using Voice Recognition software in a busy, high-work load, and often noisy Emergency Department environment. It may contain unintended and wholly unrecognized errors or omissions. TORI DING MD Apr 09, 2019 01:53
[2019-04-09] MEDS ORDERED: IV RINGERS SOLUTION,LACTATED 1,000 ML IV SCH (02:00)
[2019-04-09 02:27] LABS: BASO # 0.1 x10^3/uL (0.0-0.2); BASO % 1 % (0-3); EOS # 0.2 x10^3/uL (0.0-0.7); EOS % 3 % (0-3); HEMATOCRIT 31.5 % (36.0-47.0); LYMPH # 1.8 x10^3/uL (1.0-4.8); LYMPH % 25 % (24-48); MEAN CORPUSCULAR HEMOGLOBIN 25 pg (25-35); MEAN CORPUSCULAR HGB CONC 32 g/dL (31-37); MEAN CORPUSCULAR VOLUME 78 fL (79-100); MONO # 0.8 x10^3/uL (0.0-1.1); MONO % 10 % (0-9); NEUT # 4.4 x10^3uL (1.8-7.7); NEUT % 61 % (31-73); PLATELET COUNT 300 x10^3/uL (140-400); RED BLOOD COUNT 4.01 x10^6/uL (3.50-5.40); RED CELL DISTRIBUTION WIDTH 16.2 % (11.5-14.5); WHITE BLOOD COUNT 7.2 x10^3/uL (4.0-11.0)
[2019-04-09 02:35] LABS: BACTERIA,URINE MANY /HPF (0-FEW); BILIRUBIN,URINE NEG (NEG); CLARITY,URINE HAZY; COLOR,URINE YELLOW; GLUCOSE,URINE NEG (NEG); NITRITE,URINE POS (NEG); RBC,URINE OCC /HPF (0-2); UROBILINOGEN,URINE 0.2 mg/dL (0.2 mg/dL)
[2019-04-09 02:36] LABS: SQUAMOUS EPITHELIAL CELL,UR OCC /LPF
[2019-04-09 02:44] LABS: AMPHETAMINE/METHAMPHETAMINE NEG (NEG); BARBITURATES NEG (NEG); BENZODIAZEPINES NEG (NEG); CANNABINOIDS NEG (NEG); COCAINE NEG (NEG); METHADONE NEG (NEG); OPIATES NEG (NEG); PHENCYCLIDINE NEG (NEG)
[2019-04-09 02:44] LABS: ALBUMIN 3.6 g/dL (3.4-5.0); CALCIUM 8.9 mg/dL (8.5-10.1); CREATININE 0.8 mg/dL (0.6-1.0); DIRECT BILIRUBIN 0.1 mg/dL (0.0-0.2); MAGNESIUM 2.1 mg/dL (1.8-2.4); POTASSIUM 3.9 mmol/L (3.5-5.1); TOTAL BILIRUBIN 0.2 mg/dL (0.2-1.0); TOTAL PROTEIN 7.3 g/dL (6.4-8.2)
[2019-04-09] MEDS ORDERED: MAGNESIUM HYDROXIDE 2,400 MG/30 ML ORAL.SUSP. PO ONE (03:30)
[2019-04-09 03:31] LABS: SEDIMENTATION RATE 30 (0-25)
--- NOTE | 2019-04-09 03:32 | RAD ---
RS Compliance Statement: One or more of the following individualized dose reduction techniques were utilized for this examination: 1. Automated exposure control 2. Adjustment of the mA and/or kV according to patient size 3. Use of iterative reconstruction technique CT HEAD AND MAXILLOFACIAL WITHOUT CONTRAST History: Left facial fullness, dizziness. History of MS. Comparison: None. Procedure: Axial images are obtained of the head from the skull base through the vertex without IV contrast. Helical CT imaging of the facial bones is performed without IV contrast. Findings: The ventricles and sulci are normal for the patient's age. There is a 1.3 cm hypodensity in the left pericallosal white matter. More subtle small hypodensity is also seen right pericallosal. These hypodensities may be sequela of demyelination. No mass-effect, midline shift, hemorrhage or obvious acute infarction is identified. Basilar cisterns are patent. Bone windows demonstrate no significant calvarial abnormality. No acute facial bone fracture. Mucosal thickening of the bilateral ethmoid sinuses, worse on the right. Minimal mucosal thickening inferiorly in the bilateral maxillary sinuses. Other paranasal sinuses are clear. There is no air-fluid level. The ostiomeatal complexes are patent. There is rightward deviation of the bony nasal septum. Mastoid air cells are well aerated. The parotid and submandibular glands are symmetric. There are subcentimeter upper cervical lymph nodes. Upper cervical spine alignment is maintained. IMPRESSION: 1. Small hypodensities of the pericallosal white matter are nonspecific but may be sequela of demyelination. Nonemergent MR brain with and without contrast may be useful. 2. No CT explanation for patient's left facial fullness. Electronically signed by: Jose Miguel Fang MD (04/09/2019 3:30 AM) [place] [id number]
[2019-04-09] MEDS ORDERED: cefTRIAXone SODIUM 1 GM VIAL ONE (03:34)
[2019-04-09] MEDS ORDERED: IV NORMAL SALINE 50ML 50 ML ONE (03:35)
[2019-04-09 03:44] VITALS: BP 122/81
[2019-04-09] MEDS ORDERED: FLUT9.9S NS (03:50)
[2019-04-09] MEDS ORDERED: CEPH-264 PO (03:50)
[2019-04-09] MEDS ORDERED: SODI104S NS (03:50)
--- NOTE | 2019-04-09 06:10 | RAD ---
ACUTE ABDOMEN SERIES, LATERAL CHEST Clinical Indication: Nausea, dizziness, right flank and back pain. Comparison: None. Findings: The cardiomediastinal silhouette is normal. Lungs are clear. There is no pneumothorax. No pleural effusion is appreciated. No acute bone abnormality. Mild degenerative endplate spurring of the thoracic spine. No pneumoperitoneum. Moderate colon stool volume. There is no dilated small bowel. No radiopaque calculus is seen. No air-fluid levels are seen. Lumbar spine and pelvic bones unremarkable. IMPRESSION: 1. No acute cardiopulmonary process. 2. Nonobstructive bowel gas pattern. 3. Moderate colon stool volume suggests constipation. Electronically signed by: Jose Miguel Fang MD (04/09/2019 6:07 AM) [facility]
--- NOTE | 2019-04-09 07:55 | EKG ---
[address] [address] Test Date: 2019-04-09 Test Time: 02:18:17 Pat Name: IQRA RODRÍGUEZ Department: Room: Gender: F Welder Manufacture: NICOLE : 1980 Requested By: TORI DING Order Number: [id number] Reading MD: Measurements Intervals [place] Rate: 66 P: 41 ID: [id number] QRS: 40 QRSD: 80 T: 34 QT: 406 QTc: 427 Interpretive Statements SINUS RHYTHM NO SPECIFIC ECG ABNORMALITIES RI6.01 No previous ECG available for comparison
== END 2019-04-09 04:25 | disposition home or self-care (01) ==
LOC: ER 01:36
DX: N39.0 Urinary tract infection, site not specified (principal); B96.89 Other specified bacterial agents as the cause of diseases classified elsewhere; G35 Multiple sclerosis; R42 Dizziness and giddiness; F41.9 Anxiety disorder, unspecified; K59.00 Constipation, unspecified; D64.9 Anemia, unspecified; R70.0 Elevated erythrocyte sedimentation rate; J32.0 Chronic maxillary sinusitis; J32.2 Chronic ethmoidal sinusitis; H91.92 Unspecified hearing loss, left ear; Z86.2 Personal history of diseases of the blood and blood-forming organs and certain disorders involving the immune mechanism; Z87.440 Personal history of urinary (tract) infections; Z98.51 Tubal ligation status; Z98.890 Other specified postprocedural states
CPT/HCPCS: 36415; 70450; 70486; 71045; 74022; 80048; 80076; 80307; 81001; 81025; 82150; 82550; 83690; 83735; 84443; 84484; 85025; 85379; 85610; 85651; 85730; 87086; 93005; 96361; 96365; 99285; J0696; J7120; 87186